=== PATIENT | female | born 1990 | race American Indian/Alaskan Native ===

== ENCOUNTER 2018-03-06 17:10 | Emergency (ER) | payer MEDICAID, SELFPAY ==
--- NOTE | 2018-03-06 19:45 | OBHP ---
Datetime: 03/06/2018 18:14 IP Adm Impression: Term, intrauterine IP Admit Plan: Observation/Evaluation; Discharge home Admit Comment, IP Provider: 27 yo at 38.0 weeks by MO of 03/20/18 presents because of pelvi c pressure and lower back pain that began at 3 am. She denies vaginal bleeding, loss of fluid through the vagina, contractions, and decreased movement. She reports baby is moving fine. Last sexual activity reported > 6 months ago. OB history: 1 - no complications. Follows at [facility]- Dr. Rouse. PMH: Denies Family history: Denies Social history: No drinking, smoking or use of illicit drugs. Surgical history: Denies Allergies: N.K.D.A Medications: PNV Labs: Patient was unable to provide her documentation. Physical exam: Resting comfortably on bed. No acute distress. Heart: no murmurs, regular rate and rhythm, S1, S2 normal. Lungs: clear to auscultation bilaterally, no wheezing Abdomen: gravid, soft, nontender to palpation Vaginal exam: With Dr. Brooks as a Title Examiner. Cervix: 2/50/-2 . Lower extremities: negative for edema monitor: Baseline FHR:145; Moderate variabiliaty; Accelerations present, No Decelerations, C ontractions every _ 8 minutes; Category I tracing. Assessment: 27 yo with IUP at 38.0 weeks by MO of 03/20/18 presents because of pelvic pre ssure and lower back pain. Plan: - Given vaginal exam, it was discussed with patient if she would be comfortable to go home and ret urn when she is in active labor. Counseling patient on active labor occurred. Patient was encouraged to return if she has vaginal leakage of fluid or increased intensity and frequency of her contraction s. Case discussed with Dr. Brooks and Dr. Miranda ----Aileen Arizmendi, PGY-1 , Family medicine The patient was seen with the resident I agree with the notes Pelvic Type - PN: Adequate Extremities - PN: Normal Abdomen - PN: Normal Back - PN: Normal Breast - PN: Not Done Lungs - PN: Normal Heart - PN: Normal Thyroid - PN: Not Done Neurologic - PN: Not Done HEENT - PN: Normal General - PN: Normal FHR - Baseline A Provider: 145 EGA AdmitDate IP: 38.0 Vital Signs Provider: Reviewed; Within Normal Limits IP Chief Complaint: Uterine contractions; Maternal discomfort NICHD Variability Prov Fetus A: Moderate 6-25bpm NICHD Accel Fetus A IP Provider: [id number] FHR Category Provider Fetus A: Category I NICHD Decel Fetus A IP Provider: None Dilatation, Provider: 2 Effacement, Provider: 50 Station, Provider: -2 Genitourinary Exam: Normal DTRs - PN: Not Done
[2018-03-06 23:57] VITALS: BP 121/74; PULSE 84; RESP 18; TEMP 98.3; O2SAT 100
== END 2018-03-06 19:10 | disposition home or self-care (01) ==
LOC: H.EROB2 17:10
DX: O26.93 Pregnancy related conditions, unspecified, third trimester (principal); R10.2 Pelvic and perineal pain; M54.5 Low back pain; Z3A.38 38 weeks gestation of pregnancy

== ENCOUNTER 2018-03-21 07:59 | Emergency (ER) | payer MEDICAID, SELFPAY ==
[2018-03-21 08:28] VITALS: BMI 27.8
--- NOTE | 2018-03-21 12:16 | US ---
Date of service: 03/21/2018 PROCEDURE: Limited Ob ultrasound HISTORY: 40.1 potential ROM COMPARISON: None TECHNIQUE: Transvaginal pelvic ultrasound was performed. FINDINGS: There is a single live intrauterine fetus in cephalic presentation. heart rate is 140 beats per minute. Placenta is anterior. Cervix is closed. Biophysical profile scoring: breathing movements: 2 movements: 2 tones: 2 Amniotic fluid: 2 Total score: 8 IMPRESSION: Single live intrauterine fetus in cephalic presentation. Placenta is anterior. Cervix is closed. biophysical profile score is normal: 8/8.
[2018-03-21 17:18] VITALS: BP 128/58; PULSE 69; O2SAT 99
--- NOTE | 2018-03-22 08:56 | OBHP ---
Datetime: 03/21/2018 14:23 IP Adm Impression: Term, intrauterine ; No Active Labor IP Admit Plan: Observation/Evaluation; Discharge home Admit Comment, IP Provider: 27 yo at 40.1 weeks by MO of 03/20/18 presents because of pelvi c pressure every 5 mintues and leaking of fluid that began at 6pm yesterday evening (11 hours prior t o presentation). She denies vaginal bleeding and decreased movement. She reports baby is moving a lot. Last sexual activity reported > 6 months ago. OB history: 1 - no complications. Follows at [facility]- Dr. Rouse. PMH: Denies Family history: Denies Social history: No drinking, smoking or use of illicit drugs. Surgical history: Denies Allergies: N.K.D.A Medications: PNV Labs: Patient was unable to provide her documentation. Physical exam: Resting comfortably on bed. No acute distress. Heart: no murmurs, regular rate and rhythm, S1, S2 normal. Lungs: clear to auscultation bilaterally, no wheezing Abdomen: gravid, soft, nontender to palpation Vaginal exam: Cervix: 3/75/-2. Lower extremities: negative for edema monitor: Baseline FHR:145; Moderate variabiliaty; Accelerations present, No Decelerations, C ontractions every _ 5-8 minutes; Category I tracing. Assessment: 27 yo with IUP at 40.1 weeks by MO of 03/20/18 presents because of pelvic pre ssure every 5 mintues and leaking of fluid that began at 6pm yesterday evening (11 hours prior to pre sentation) Plan: -NST _ BPP: wnl, NST reactive category 1, BPP 8 -Given vaginal exam and EFM it was discussed with patient if she would be comfortable to go home a nd return when she is in active labor. Counseling patient on active labor occurred. Patient was encou raged to return if she has vaginal leakage of fluid or increased intensity and frequency of her contr actions. -Follow-up at [facility] as per routine scheduled appointment today Case seen with and discussed with Dr. Martinez. --Fadia Camacho, PGY1 [facility] Family Medicine Addendum: I saw and examined patient at presentation. No evidence of labor at this time. Biophysical profile 8 out of 8. Patient discharged home with labor precautions. Patient reports having follow-up at [facility] tomorrow and will keep this appointment. Discussed plan with patient all patient questions answere shirley Martinez Pelvic Type - PN: Adequate Extremities - PN: Normal Abdomen - PN: Normal Breast - PN: Not Done Lungs - PN: Normal Heart - PN: Normal Thyroid - PN: Not Done Neurologic - PN: Not Done HEENT - PN: Normal General - PN: Normal FHR - Baseline A Provider: 145 Membranes, Provider: Intact Pool Provider: Negative EGA AdmitDate IP: 40.1 Vital Signs Provider: Reviewed; Within Normal Limits IP Chief Complaint: Uterine contractions; Suspected ruptured membranes; Maternal discomfort NICHD Variability Prov Fetus A: Moderate 6-25bpm NICHD Accel Fetus A IP Provider: 15X15 FHR Category Provider Fetus A: Category I NICHD Decel Fetus A IP Provider: None Dilatation, Provider: 3 Effacement, Provider: 50 Station, Provider: -2 Genitourinary Exam: Not Done DTRs - PN: Not Done
== END 2018-03-21 12:14 | disposition home or self-care (01) ==
LOC: H.EROB2 07:59 → H.EROB 08:00 → H.EROB2 12:14
DX: O26.93 Pregnancy related conditions, unspecified, third trimester (principal); R10.2 Pelvic and perineal pain; Z3A.40 40 weeks gestation of pregnancy; O48.0 Post-term pregnancy